=== PATIENT | male | born 2000 | race Caucasian/White ===

== ENCOUNTER 2024-05-02 07:00 | Outpatient (CLI) | payer OTHER ==
--- NOTE | 2024-05-02 22:52 | XRAY Report ---
PROCEDURE: Chest 2V INDICATIONS: UPPER RESPIRATORY INFECTION TECHNIQUE: 2 views of the chest were acquired. COMPARISON: None. FINDINGS: Surgical changes and devices: None. Lungs and pleura: No pleural effusions or pneumothorax. Lungs are clear. Mediastinum: Mediastinal contours appear normal. Heart size is normal. Bones and chest wall: No suspicious bony lesions. Overlying soft tissues appear unremarkable. IMPRESSION: No acute cardiopulmonary process. Reviewed by: LILLY Hand on 05/02/2024 10:51 PM PDT Approved by: Dulce Little MD on 05/02/2024 10:51 PM PDT Station ID: [id number]
== END 2024-05-02 23:59 | disposition home or self-care (01) ==
LOC: DI.S 07:00
PROVIDERS: ATTEND Physician Assistant
DX: J06.9 Acute upper respiratory infection, unspecified (principal)